=== PATIENT | female | born 2000 | race Two or more races ===

== ENCOUNTER 2020-02-15 05:55 | Emergency (ER) | payer MEDICAID, OTHER ==
[~2020-02-15] VITALS: Ht 162.6 cm; Wt 67.1 kg
[2020-02-15 12:15] VITALS: BP 127/74
== END 2020-02-15 15:20 | disposition home or self-care (01) ==
LOC: ER 05:55
DX: O98.511 Other viral diseases complicating pregnancy, first trimester (principal); U07.1 COVID-19; Z3A.10 10 weeks gestation of pregnancy
CPT/HCPCS: 36415; 87426